=== PATIENT | female | born 1975 | race Caucasian/White ===

== ENCOUNTER 2020-07-08 05:43 | Observation (INO) ==
[2020-07-08 07:09] LABS: Basophils # 0.1 K/mcL (0.0-0.2); Basophils % 0.6 %; Eosinophils # 0.5 K/mcL (0.0-0.6); Eosinophils % 5.2 %; Hematocrit 38.4 % (35.3-44.9); Hemoglobin 12.4 g/dL (11.5-15.4); Immature Granulocytes % 0.3 % (0-4); Lymphocytes # 3.1 K/mcL (0.6-4.6); Lymphocytes % 31.3 %; Mean Corpuscular HGB Conc 32.3 g/dL (31.6-35.5); Mean Corpuscular Hemoglobin 28.7 pg (28.0-33.3); Mean Corpuscular Volume 88.9 fL (83.0-100.0); Monocytes # 0.6 K/mcL (0.0-1.3); Monocytes % 6.5 %; Neutrophils # 5.5 K/mcL (1.6-8.9); Platelet Count 299 K/mcL (140-400); Red Blood Count 4.32 M/mcL (3.82-4.97); Red Cell Distribution Width 12.6 % (11.5-14.5); Segmented Neutrophils % 56.1 %; White Blood Count 9.8 K/mcL (4.3-11.1)
[2020-07-08 07:13] LABS: Prothrombin Time 11.3 Seconds (9.4-12.1)
[2020-07-08 07:16] LABS: Activated Partial Thrombo Time 27.2 Seconds (26.0-36.0)
[2020-07-08 07:24] LABS: Bacteria,Urine Few per hpf (None-Few); Bilirubin,Urine Negative (Negative); Blood,Urine Negative (Negative); Clarity,Urine Turbid (Clear); Color,Urine Yellow (Yellow); Glucose,Urine (UA) Normal (Normal); Ketones,Urine Negative (Negative); Leukocyte Esterase,Urine Small (Negative); Mucus,Urine Few per lpf (None-Few); Nitrite,Urine Negative (Negative); Protein,Urine 30 mg/dL (Neg-Trace); RBC,Urine 0-3 per hpf (0-3); Specific Gravity,Urine 1.028 (1.010-1.025); Squamous Epithelial Cell,Urine Moderate per hpf (None-Few); Urobilinogen,Urine Normal (Normal); WBC,Urine 15-30 per hpf (0-3)
[2020-07-08 07:32] LABS: BUN/Creatinine Ratio 19 (6-26); Blood Urea Nitrogen 13 mg/dL (6-20); Calcium 9.6 mg/dL (8.6-10.3); Carbon Dioxide 24 mEq/L (23-29); Chloride 106 mEq/L (98-107); Glucose 161 mg/dL (70-105); Osmolality,Calculated 292 (280-300); Potassium 3.5 mEq/L (3.5-5.1); Sodium 139 mEq/L (136-145); Troponin I < 0.03 ng/mL (< 0.04); eGFR For African Americans > 60 (> 60); eGFR For Non-African Americans > 60 (> 60)
[2020-07-08] MEDS ORDERED: Aspirin 81 MG TAB.CHEW PO ONE (08:00)
[2020-07-08] MEDS: amLODIPine 5 MG TABLET PO STA ×2 (08:42→12:12)
[2020-07-08] MEDS ORDERED: Naloxone 0.4 MG/ML INJ IVP PRN (09:26)
[2020-07-08] MEDS ORDERED: *HR* HYDROcodone/Acet 5/325 mg TABLET PO PRN (09:26)
[2020-07-08] MEDS ORDERED: Acetaminophen 325 MG TABLET PO PRN (09:26)
[2020-07-08] MEDS ORDERED: *HR* Dextrose 50 % in Water (Vial) 50 ML VIAL IVP PRN (09:29)
[2020-07-08] MEDS ORDERED: Dextrose Gel 15 GM/37.5 ML TUBE PO PRN ×2 (09:29)
[2020-07-08] MEDS ORDERED: D5% in Water 1,000 ML IVC PRN (09:29)
[2020-07-08] MEDS ORDERED: Perflutren Lipid Microsphere 1.3 ML in 0.9 % Sodium Chloride 8.7 ML IVP PRN (09:50)
[2020-07-08] MEDS ORDERED: *HR* LORazepam 0.5 MG TABLET PO PRN (10:39)
[2020-07-08] MEDS: Insulin LISPRO 300 UNITS/3 ML VIAL SQ SCH ×2 (12:14→16:37)
[2020-07-08 15:33] LABS: Chol/HDL Ratio 2.8 (0-4.9)
[2020-07-08 15:47] LABS: Thyroid Stimulating Hormone 2.867 mcIU/mL (0.340-5.600)
[2020-07-09 05:59] LABS: Basophils # 0.1 K/mcL (0.0-0.2); Basophils % 0.7 %; Eosinophils # 0.4 K/mcL (0.0-0.6); Eosinophils % 5.5 %; Hematocrit 38.2 % (35.3-44.9); Hemoglobin 12.2 g/dL (11.5-15.4); Immature Granulocytes % 0.4 % (0-4); Lymphocytes % 37.8 %; Mean Corpuscular HGB Conc 31.9 g/dL (31.6-35.5); Mean Corpuscular Volume 87.8 fL (83.0-100.0); Mean Platelet Volume 10.9 fL (9.4-12.4); Monocytes # 0.5 K/mcL (0.0-1.3); Monocytes % 6.6 %; Platelet Count 286 K/mcL (140-400); Red Blood Count 4.35 M/mcL (3.82-4.97); Red Cell Distribution Width 12.8 % (11.5-14.5); White Blood Count 8.1 K/mcL (4.3-11.1)
[2020-07-09] MEDS ORDERED: *HR* Enoxaparin 40 MG/0.4 ML SYRINGE SQ SCH (06:00)
[2020-07-09 06:22] LABS: Alanine Aminotransferase 10 Units/L (7-52); Albumin 3.8 g/dL (3.5-5.7); Albumin/Globulin Ratio 1.6 (1.1-2.2); Alkaline Phosphatase 100 Units/L (34-104); Aspartate Amino Transferase 9 Units/L (13-39); BUN/Creatinine Ratio 22 (6-26); Bilirubin,Total 0.3 mg/dL (0.3-1.0); Blood Urea Nitrogen 14 mg/dL (6-20); Calcium 9.1 mg/dL (8.6-10.3); Carbon Dioxide 23 mEq/L (23-29); Chloride 108 mEq/L (98-107); Globulin 2.4 g/dL (2.4-3.5); Glucose 137 mg/dL (70-105); Magnesium 1.8 mg/dL (1.6-2.6); Osmolality,Calculated 293 (280-300); Phosphorous 3.9 mg/dL (2.7-4.5); Potassium 3.7 mEq/L (3.5-5.1); Sodium 140 mEq/L (136-145); Total Protein 6.2 g/dL (6.4-8.9); eGFR For African Americans > 60 (> 60); eGFR For Non-African Americans > 60 (> 60)
[2020-07-09 06:56] VITALS: BP 132/83
[2020-07-09] MEDS: Insulin LISPRO 300 UNITS/3 ML VIAL SQ SCH (07:41)
[2020-07-09 08:54] LABS: Amphetamine Screen,Urine Negative ng/mL (Cutoff=1000); Barbiturate Screen,Urine Negative ng/mL (Cutoff=200); Benzodiazepines Screen,Urine Negative ng/mL (Cutoff=200); Cannabinoid Screen,Urine Negative ng/mL (Cutoff = 50); Cocaine Screen,Urine Negative ng/mL (Cutoff= 300); Opiate Screen,Urine Negative ng/mL (Cutoff=300); Phencyclidine Screen,Urine Negative ng/mL (Cutoff=25)
[2020-07-09] MEDS ORDERED: carvediloL 6.25 MG TABLET PO SCH (09:11)
[2020-07-09] MEDS ORDERED: lisinopriL 20 MG TABLET PO SCH (09:15)
[2020-07-09] MEDS ORDERED: Dorzolamide OPTH 10 ML BOTTLE LEFT EYE SCH (09:15)
[2020-07-09] MEDS ORDERED: amLODIPine 5 MG TABLET PO SCH (09:15)
[2020-07-09 09:56] LABS: Estimated Average Glucose 166 mg/dl
== END 2020-07-09 11:28 | disposition home or self-care (01) ==
LOC: 3BNU 05:43 → EMEROOARM 05:43 → SUATTDRO 09:29 → 3BNU 10:10
PROVIDERS: ADMIT Internal Medicine; ATTEND Internal Medicine